=== PATIENT | female | born 1965 ===

== ENCOUNTER 2017-09-25 07:46 | Emergency (ER) | payer SELFPAY ==
[2017-09-25 08:06] VITALS: BP 149/81; PULSE 65; RESP 16; TEMP 98.4; O2SAT 96
--- NOTE | 2017-09-25 09:09 | C.PDOC ---
History Of Present Illness 52 year old female with no significant PMHx presents to the ED with complaints of throat pain, productive cough with brown phlegm, fever, and chills for one week. Patient reports throat swelling feels as though she has "a hair ball stuck in my throat." Patient took Tylenol with transient relief. Patient denies sick contacts, recent travel, headache, nausea, vomiting, abdominal pain, or other complaints at this time Time Seen by Provider: 09/25/17 08:07 Chief Complaint (Nursing): ENT Problem History Per: Patient History/Exam Limitations: no limitations Onset/Duration Of Symptoms: Days (1 week) Current Symptoms Are (Timing): Still Present Location Of Pain: Ear(s), Throat Sick Contacts (Context): None Associated Symptoms: Fever, Chills, Cough, Sputum. denies: Nausea, Vomiting, Diarrhea Ear Symptoms: Bilateral: Ear Pain Recent travel outside of the [place]: No Past Medical History Reviewed: Historical Data, Nursing Documentation, Vital Signs Vital Signs: Last Vital Signs Temp 98.4 F 09/25/17 07:52 Pulse 65 09/25/17 07:52 Resp 16 09/25/17 07:52 BP 149/81 09/25/17 07:52 Pulse Ox 96 09/25/17 10:31 - Medical History PMH: HTN Other Surgeries: hysterectomy Family History: States: Unknown Family Hx - Social History Hx Alcohol Use: No Hx Substance Use: No - Immunization History Hx Influenza Vaccination: Yes Hx Pneumococcal Vaccination: Yes Review Of Systems Constitutional: Positive for: Fever, Chills ENT: Positive for: Ear Pain, Throat Pain, Throat Swelling Cardiovascular: Negative for: Chest Pain, Palpitations Respiratory: Positive for: Cough, Sputum. Negative for: Shortness of Breath Gastrointestinal: Negative for: Nausea, Vomiting, Abdominal Pain, Diarrhea Skin: Negative for: Rash Neurological: Negative for: Headache, Dizziness Physical Exam - Physical Exam Appears: Non-toxic, No Acute Distress Skin: Warm, Dry, No Rash Head: Atraumatic, Normacephalic, No Tenderness Eye(s): bilateral: Normal Inspection, PERRL, EOMI Ear(s): Bilateral: Normal (no erythema) Nose: Normal, No Discharge Oral Mucosa: Moist Gingiva: Normal Appearing Throat: Erythema (mild erythema), No Exudate, No Drooling, No Mass, No Other ( no tonsillar swelling or uvula deviation) Neck: Normal ROM, Supple Lymphatic: No Adenopathy Chest: Symmetrical, No Deformity Cardiovascular: Rhythm Regular, No Murmur Respiratory: No Rales, No Rhonchi, No Wheezing, Other (clear to auscultation bilaterally) Gastrointestinal/Abdominal: Soft, No Tenderness, No Distention, No Guarding, No Rebound Extremity: Normal ROM, No Tenderness, No Deformity, No Swelling Neurological/Psych: Oriented x3, Normal Speech Gait: Steady ED Course And Treatment O2 Sat by Pulse Oximetry: 96 (room air) Pulse Ox Interpretation: Normal Progress Note: Patient was given Zithromax. Disposition Counseled Patient/Family Regarding: Diagnosis, Need For Followup, Rx Given - Disposition Referrals: [facility] [Outside] [facility] [employer] [facility] [Outside] Disposition: HOME/ ROUTINE Disposition Time: 10:25 Condition: GOOD Additional Instructions: Laly recetas enviadas a la farmacia Gomer antibiticos diariamente tome la medicina para la tos segn sea necesario cada 8 horas Darrell un seguimiento con robert mdico o clnica para steph evaluacin adicional Prescriptions: Azithromycin [Zithromax] 250 mg PO DAILY #4 tab Promethazine DM [Phenergan DM Syrup] 5 ml PO Q8 PRN #3 oz PRN Reason: Cough Instructions: Upper Respiratory Infection (ED) Forms: [employer] (French) Print Language: SWEDISH - POA Present On Arrival: None - Clinical Impression Clinical Impression: Upper respiratory infection - 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 - Scribe Statement The provider has reviewed the documentation as recorded by the Scribe Sammi Landa All medical record entries made by the Scribwaldemar were at my direction and personally dictated by me. I have reviewed the chart and agree that the record accurately reflects my personal performance of the history, physical exam, medical decision making, and the department course for this patient. I have also personally directed, reviewed, and agree with the discharge instructions and disposition.
== END 2017-09-25 08:41 | disposition home or self-care (01) ==
LOC: C.ER 07:46
DX: J06.9 Acute upper respiratory infection, unspecified (principal)